=== PATIENT | female | born 1955 | race Caucasian/White ===

== ENCOUNTER 2016-04-05 10:26 | Emergency (ER) | payer OTHER ==
[2016-04-05 11:31] VITALS: BP 146/84
--- NOTE | 2016-04-05 12:34 | UC ---
Abdominal Pain Female HPI - HPI Summary HPI Summary: 60 year old female with complaints of 3 days of left upper quad abdominal pain radiating into her back. Pain was significant enough she had to leave work today. Pt is having some nausea, Denies vomiting. Denies urinary symptoms Hx of elevated liver functions, possible was medication induced but continue to be elevated after 1 year Denies fever or chills - History of Current Complaint Chief Complaint: UCAbdominalPain Stated Complaint: ABDOMINAL PAIN Time Seen by Provider: 04/05/16 12:11 Hx Obtained From: Patient Hx Last Menstrual Period: 6 yrs ago Onset/Duration: Gradual Onset, Lasting Days - 3, Still Present Timing: Constant Severity Initially: Mild Severity Currently: Severe Pain Scale Used: 0-10 Numeric - 7 Location: Discrete At: LUQ Radiates to: Back, Flank Aggravating Factor(s): Nothing Alleviating Factor(s): Nothing Associated Signs and Symptoms: Positive: Back Pain - left flank, Nausea. Negative: Fever, Cough, Chest Pain, Dizzy, Constipation, Blood in Stool, Urinary Symptoms, Decreased Appetite, Vaginal Bleeding, Vaginal Discharge, Vomiting, Diarrhea - Risk Factors Ectopic Risk Factor: Negative Ovarian Torsion Risk Factor: Negative Allergies/Adverse Reactions: Allergies Allergy/AdvReac Type Severity Reaction Status Date / Time Ibuprofen Allergy Severe Swelling Verified 06/14/15 10:06 Penicillins Allergy Severe Swelling Verified 06/14/15 10:06 Of Face,Lips,& Throat Cephalexin [From Keflex] Allergy Intermediate Rash Verified 06/14/15 10:06 Bacitracin cream Allergy Severe Blisters Uncoded 06/14/15 10:06 ENVIRONMENTAL/SEASONAL Allergy Mild RUNNY Uncoded 06/14/15 10:06 HAYFEVER NOSE, EYES SWELL, SNEEZING Home Medications: Home Medications Desvenlafaxine Succinate [Pristiq] 1 tab PO DAILY 04/05/16 [History Confirmed ] Multiple Vitamins W/ Minerals [Multivitamin Gummies Wome] 1 chw PO DAILY [History Confirmed 04/05/16] PMH/Surg Hx/FS Hx/Imm Hx Previously Healthy: Yes Endocrine History Of: Denies: Diabetes, Thyroid Disease Cardiovascular History Of: Reports: Hypertension Denies: Cardiac Disorders, Pacemaker/ICD, Myocardial Infarction Respiratory History Of: Reports: Asthma Denies: COPD GI/ History Of: Denies: Ulcer Psychological History Of: Reports: Anxiety - PANIC DISORDER, Depression - ON MEDS - Surgical History Surgical History: Yes Surgery Procedure, Year, and Place: Nose and lip surgery for basal cell carcinoma. LSP surgery 1999 at [facility] [place],. c-sections x2,. right wrist - ORIF ( PLATES & PINS) tubal, right knee. LIVER BIOPSY - Family History Known Family History: Positive: Hypertension Negative: Diabetes - Social History Occupation: Employed Full-time Lives: With Family Alcohol Use: None Substance Use Type: None Smoking Status (MU): Light Every Day Tobacco Smoker Type: Cigarettes Amount Used/How Often: < 1/2 ppd Length of Time of Smoking/Using Tobacco: 40 years Have You Smoked in the Last Year: Yes Cessation Counseling: Patient Advised to Stop - Immunization History Most Recent Influenza Vaccination: FALL 2014 Most Recent Tetanus Shot: 05/08/2014 Review of Systems Constitutional: Negative Skin: Negative Eyes: Negative ENT: Negative Respiratory: Negative Cardiovascular: Negative Gastrointestinal: Abdominal Pain Genitourinary: Negative Motor: Negative Neurovascular: Negative Musculoskeletal: Negative Neurological: Negative Psychological: Negative All Other Systems Reviewed And Are Negative: Yes Physical Exam Triage Information Reviewed: Yes Appearance: Ill-Appearing - mildly, Pain Distress - rubbing over her left upper quad and flank area while talking, Obese Vital Signs: Initial Vital Signs Temp 99.0 F 04/05/16 11:24 Pulse 65 04/05/16 11:24 Resp 18 04/05/16 11:24 BP 146/84 04/05/16 11:24 Pulse Ox 98 04/05/16 11:24 Vital Signs Reviewed: Yes Eyes: Positive: Conjunctiva Clear. Negative: Discharge ENT: Positive: Hearing grossly normal, Pharynx normal Neck: Positive: Supple, Nontender, No Lymphadenopathy Respiratory: Positive: Lungs clear, Normal breath sounds. Negative: Crackles, Wheezing Cardiovascular: Positive: RRR, No Murmur Abdomen Description: Positive: No Organomegaly, Soft, CVA Tenderness (L), Other : - left upper quad pain with palpation. Negative: CVA Tenderness (R), Distended, Guarding Musculoskeletal: Positive: Strength Intact, ROM Intact Neurological: Positive: Alert, Muscle Tone Normal Psychological: Positive: Age Appropriate Behavior - pleasant and cooperative Skin: Negative: rashes, breakdown Abd Pain Female Course/Dx - Course Course Of Treatment: Pt allergic to NSAIDS. She took her own pain med at 12: 50. UA - unable due to elevated bili. will transfer to [facility] - Differential Dx/Diagnosis Differential Diagnosis: Pancreatitis, Renal Colic, Urinary Tract Infection Provider Diagnoses: LUQ abdominal pain - Physician Notification/Consults Discussed Patient Care With: [facility] WEI Aaron Time Discussed With Above Provider: 13:10 Instructed by Provider To: Transfer - via private car Discharge - Discharge Plan Condition: Stable Disposition: TRANS HIGHER LVL OF CARE FAC
== END 2016-04-05 13:12 | disposition left against medical advice (07) ==
LOC: UCEAST 10:26
DX: R10.12 Left upper quadrant pain (principal); R11.0 Nausea; E80.7 Disorder of bilirubin metabolism, unspecified; Z88.6 Allergy status to analgesic agent; Z88.1 Allergy status to other antibiotic agents; Z88.0 Allergy status to penicillin; F17.210 Nicotine dependence, cigarettes, uncomplicated
CPT/HCPCS: 81002; 99212; G0463

== ENCOUNTER 2016-04-05 13:53 | Emergency (ER) | payer OTHER ==
[2016-04-05 14:27] VITALS: BP 149/74
== END 2016-04-05 16:51 | disposition left against medical advice (07) ==
LOC: ED 13:53
DX: R51 Headache (principal)

== ENCOUNTER 2016-04-06 07:53 | Emergency (ER) | payer OTHER ==
[2016-04-06] MEDS ORDERED: Ondansetron INJ* 2 MG/ML VIAL IV ONE (09:50)
[2016-04-06] MEDS ORDERED: NS 0.9% 1000 ML* 3,000 ML IV ONE (09:50)
[2016-04-06 10:12] LABS: Hematocrit 49 % (35-47); Hemoglobin 16.3 g/dl (12.0-16.0); Mean Corpuscular HGB Conc 33 g/dl (31-36); Mean Corpuscular Hemoglobin 29 pg (27-31); Mean Corpuscular Volume 88 fL (80-97); Mean Platelet Volume 9 um3 (7.4-10.4); Red Blood Count 5.55 10^6/ul (4.0-5.4); Red Cell Distribution Width 14 % (10.5-15)
[2016-04-06 10:15] LABS: Urine Bilirubin Negative (Negative); Urine Glucose Negative (Negative); Urine Nitrite Negative (Negative)
--- NOTE | 2016-04-06 10:24 | RAD ---
HISTORY: Cough, pain with inspiration COMPARISONS: May 15, 2014 VIEWS: 2: Frontal dual-energy and lateral views of the chest. FINDINGS: CARDIOMEDIASTINAL SILHOUETTE: The cardiomediastinal silhouette is normal. JULISSA: The julissa are normal. PLEURA: The costophrenic angles are sharp. No pleural abnormalities are noted. LUNG PARENCHYMA: The lungs are clear. ABDOMEN: The upper abdomen is clear. There is no subphrenic gas. BONES AND SOFT TISSUES: No bone or soft tissue abnormalities are noted. OTHER: None. IMPRESSION: NO ACTIVE CARDIOPULMONARY DISEASE.
[2016-04-06 10:26] LABS: Ammonia 47 mol/L (16-53)
[2016-04-06 10:28] LABS: Albumin 3.9 g/dL (3.2-5.2); B Type Natriuretic Peptide 32 pg/mL; BUN/Creatinine Ratio 14.5 (8-20); C Reactive Protein 13.35 mg/L (< 5.00); Calcium 9.3 mg/dL (8.6-10.3); EGFR African American 100.2 (>60); EGFR Non-African American 77.9 (>60); Magnesium 2.1 mg/dL (1.9-2.7); Potassium 4.2 mmol/L (3.5-5.0); Total Bilirubin 0.6 mg/dL (0.2-1.0); Total Protein 6.9 g/dL (6.4-8.9)
[2016-04-06] MEDS ORDERED: Iohexol 300* (CONTRAST) 10 ML SDV IV ONE (10:49)
[2016-04-06] MEDS ORDERED: HYDROmorphone INJ* 1 MG/ML CARPUJECT SYRINGE IV SLOW PU ONE (11:48)
--- NOTE | 2016-04-06 13:15 | RAD ---
INDICATION: Left upper quadrant pain COMPARISON: CT February 19, 2015 TECHNIQUE: Axial source images were obtained from the hemidiaphragms to the symphysis pubis following administration of oral and intravenous contrast. 121 mL Omnipaque 300 was utilized. Coronal and sagittal reconstructed images were acquired. Lung bases: The lung bases are clear. Liver: The liver is normal in size. There is mild hepatic steatosis. There is no ductal dilatation. Gallbladder: There are no calcified gallstones. There is no evidence of wall thickening or pericholecystic fluid. Spleen: There is mild splenomegaly, unchanged. There are no masses. Pancreas: There is no focal pancreatic mass or ductal dilatation. Adrenal glands: There is no evidence of adrenal mass. Kidneys: The kidneys are normal in size and position. There are prompt nephrograms and there is prompt excretion bilaterally. There are no renal parenchymal masses. There is no evidence of nephrolithiasis. Adenopathy: There is no evidence of adenopathy by size criteria. Fluid collections: There are no free or localized fluid collections. Vessels:There are atherosclerotic changes involving the aorta and iliac vessels. There is no focal aneurysm. The IVC appears normal. GI tract: There are no acute CT bowel findings. There is no obstruction. The stomach and small bowel appear normal. There are scant diverticula. There is no CT evidence of diverticulitis. The colon is otherwise unremarkable. The cecum, ileocecal valve, and terminal ileum appear normal. The appendix is visualized and appear normal. Pelvic organs: The uterus and adnexa appear normal Bladder: There are no bladder masses. Abdominal and pelvic soft tissues: The extraperitoneal abdominal and pelvic soft tissues appear normal.. Osseous structures: There are no acute osseous findings. Other: None IMPRESSION: HEPATIC STEATOSIS. MILD SPLENOMEGALY, UNCHANGED. NO ADDITIONAL SIGNIFICANT CT FINDINGS
[2016-04-06 13:51] VITALS: BP 131/63
--- NOTE | 2016-04-06 15:02 | ED ---
Jeffery Keating Benjamin, scribed for Ricky Solitario MD on 04/06/16 at 0953 . Abdominal Pain/Female - HPI Summary HPI Summary: 60yo female c/o sudden onset constant LUQ pain for 4 days. Pt also reports nausea, cough, and night sweats. Pt also lost 40lb of weight in the last 4 months involuntarily. Pt reports pain is and shelter fatigue since 1 year ago. Hx of liver biopsy, . Fhx of CAD and CA. over 40 years smoker. Pt was seen at [facility] yesterday and was told that bilirubin was found in her urine. - History of Current Complaint Chief Complaint: EDAbdPain Stated Complaint: LT UPPER QUAD PAIN Time Seen by Provider: 04/06/16 09:09 Hx Obtained From: Patient Hx Last Menstrual Period: 6 yrs ago Onset/Duration: Gradual Onset, Lasting Days, Still Present Timing: Constant Severity Initially: Moderate Severity Currently: Moderate Pain Intensity: 7 Pain Scale Used: 0-10 Numeric Location: Discrete At: LUQ Radiates: No Aggravating Factor(s): Nothing Alleviating Factor(s): Nothing Associated Signs and Symptoms: Positive: Cough, Nausea Allergies/Adverse Reactions: Allergies Allergy/AdvReac Type Severity Reaction Status Date / Time Ibuprofen Allergy Severe Swelling Verified 04/06/16 08:03 Penicillins Allergy Severe Swelling Verified 04/06/16 08:03 Of Face,Lips,& Throat Cephalexin [From Keflex] Allergy Intermediate Rash Verified 04/06/16 08:03 Bacitracin cream Allergy Severe Blisters Uncoded 04/06/16 08:03 ENVIRONMENTAL/SEASONAL Allergy Mild RUNNY Uncoded 04/06/16 08:03 HAYFEVER NOSE, EYES SWELL, SNEEZING PMH/Surg Hx/FS Hx/Imm Hx Endocrine/Hematology History: Denies: Hx Diabetes, Hx Thyroid Disease Cardiovascular History: Reports: Hx Angina, Hx Hypertension Denies: Hx Coronary Artery Disease, Hx Hypercholesterolemia, Hx Myocardial Infarction, Hx Pacemaker/ICD, Hx Valvular Heart Disease Respiratory History: Reports: Hx Asthma Denies: Hx Chronic Obstructive Pulmonary Disease (COPD) GI History: Denies: Hx Ulcer History: Reports: Other Problems/Disorders - STRESS INCONTINENCE Musculoskeletal History: Reports: Hx Arthritis - BILATERAL KNEES, BACK, Other Musculoskeletal History - BONE SPUR IN BACK, SEVERE BACK PAIN Sensory History: Reports: Hx Contacts or Glasses - GLASSES Denies: Hx Hearing Aid Opthamlomology History: Reports: Hx Contacts or Glasses - GLASSES Neurological History: Reports: Other Neuro Impairments/Disorders - PTDS, STRESS , ANXIETY Psychiatric History: Reports: Hx Anxiety - PANIC DISORDER, Hx Depression - ON MEDS, Hx Panic Disorder - does fine with mri - Cancer History Cancer Type, Location and Year: basal cell cancer removed from face, Mohs surgery - Surgical History Surgery Procedure, Year, and Place: Nose and lip surgery for basal cell carcinoma. [place] [facility] [place]2,. right wrist - ORIF ( PLATES & PINS) tubal, right knee. LIVER BIOPSY Hx Anesthesia Reactions: No Infectious Disease History: No Infectious Disease History: Denies: Hx Clostridium Difficile, Hx Hepatitis, Hx Human Immunodeficiency Virus (HIV), Hx of Known/Suspected MRSA, Hx Shingles, Hx Tuberculosis, Hx Known/ Suspected VRE, Hx Known/Suspected VRSA, History Other Infectious Disease, Traveled Outside the [place] in Last 30 Days - Family History Known Family History: Positive: Cardiac Disease, Hypertension, Other - CA Negative: Diabetes - Social History Occupation: Employed Full-time Lives: With Family Alcohol Use: None Substance Use Type: Reports: None Smoking Status (MU): Light Every Day Tobacco Smoker Type: Cigarettes Amount Used/How Often: < 1/2 ppd Length of Time of Smoking/Using Tobacco: 40 years Have You Smoked in the Last Year: Yes Review of Systems Positive: Fatigue Eyes: Negative ENT: Negative Cardiovascular: Negative Positive: Cough Positive: Abdominal Pain - LUQ, Nausea Genitourinary: Negative Musculoskeletal: Negative Skin: Negative Neurological: Negative Psychological: Normal All Other Systems Reviewed And Are Negative: Yes Physical Exam - Summary Physical Exam Summary: The patient is well-nourished in no acute distress and in no acute pain. The skin is warm and dry and skin color reflects adequate perfusion. HEENT: The head is normocephalic and atraumatic. The pupils are equal and reactive. The conjunctivae are clear and without drainage. Nares are patent and without drainage. Mouth reveals dry mucous membranes and the throat is without erythema and exudate. The external ears are intact. The ear canals are patent and without drainage. The tympanic membranes are intact. Neck is supple with full range of motion and non-tender. There are no carotid bruits. There is no neck vein distension. Respiratory: Chest is non-tender. Lungs are clear to auscultation and breath sounds are symmetrical and equal. Cardiovascular: Hear is regular rate and rhythm. There is no murmur or rub auscultated. There is no peripheral edema and pulses are symmetrical and equal. Abdomen: The abdomen is soft and non-tender. There are normal bowel sounds heard in all four quadrants and there is no organomegaly palpated. Musculoskeletal: There is left CVA Tenderness. Extremities are non-tender with full range of motion. There is good capillary refill. There is no peripheral edema or calf tenderness elicited. Neurological: Patient is alert and oriented to person, place and time. The patient has symmetrical motor strength in all four extremities. Cranial nerves are grossly intact. Deep tendon reflexes are symmetrical and equal in all four extremities. Psychiatric: The patient has an appropriate affect and does not exhibit any anxiety or depression. Triage Information Reviewed: Yes Vital Signs On Initial Exam: Initial Vitals Temp Pulse Resp BP Pulse Ox 98.4 F 81 16 156/80 97 04/06/16 07:58 04/06/16 07:58 04/06/16 07:58 04/06/16 07:58 04/06/16 07:58 Vital Signs Reviewed: Yes - [place] Coma Scale Coma Scale Total: 15 Diagnostics - Vital Signs Vital Signs Temp Pulse Resp BP Pulse Ox 04/06/16 09:17 19 170/91 04/06/16 09:00 16 04/06/16 08:51 75 13 96 04/06/16 08:50 152/90 04/06/16 07:58 98.4 F 81 16 156/80 97 - Laboratory Lab Results: Lab Results 04/06/16 04/06/16 04/06/16 Range/Units 09:15 09:15 09:15 WBC 6.0 (3.5-10.8) 10^3/ul RBC 5.55 H (4.0-5.4) 10^6/ul Hgb 16.3 H (12.0-16.0) g/dl Hct 49 H (35-47) % MCV 88 (80-97) fL MCH 29 (27-31) pg MCHC 33 (31-36) g/dl RDW 14 (10.5-15) % Plt Count 191 (150-450) 10^3/ul MPV 9 (7.4-10.4) um3 Neut % (Auto) 51.4 (38-83) % Lymph % (Auto) 39.6 (25-47) % Hood % (Auto) 8.0 (1-9) % Eos % (Auto) 0.6 (0-6) % Baso % (Auto) 0.4 (0-2) % Absolute Neuts (auto) 3.1 (1.5-7.7) 10^3/ul Absolute Lymphs (auto) 2.4 (1.0-4.8) 10^3/ul Absolute Monos (auto) 0.5 (0-0.8) 10^3/ul Absolute Eos (auto) 0 (0-0.6) 10^3/ul Absolute Basos (auto) 0 (0-0.2) 10^3/ul Absolute Nucleated RBC 0.01 10^3/ul Nucleated RBC % 0.2 INR (Anticoag Therapy) 0.92 (0.89-1.11) Sodium 136 (133-145) mmol/L Potassium 4.2 (3.5-5.0) mmol/L Chloride 106 (101-111) mmol/L Carbon Dioxide 25 (22-32) mmol/L Anion Gap 5 (2-11) mmol/L BUN 11 (6-24) mg/dL Creatinine 0.76 (0.51-0.95) mg/dL Est GFR ( Amer) 100.2 (>60) Est GFR (Non-Af Amer) 77.9 (>60) BUN/Creatinine Ratio 14.5 (8-20) Glucose 98 (70-100) mg/dL Lactic Acid (0.5-2.0) mmol/L Calcium 9.3 (8.6-10.3) mg/dL Magnesium 2.1 (1.9-2.7) mg/dL Total Bilirubin 0.60 (0.2-1.0) mg/dL GGT 212 H (9-64.0) U/L AST 30 (13-39) U/L ALT 25 (7-52) U/L Alkaline Phosphatase 162 H (34-104) U/L Ammonia (16-53) mol/L Lactate Dehydrogenase 167 (140-271) U/L Troponin I 0.00 (<0.04) ng/mL C-Reactive Protein 13.35 H (< 5.00) mg/L B-Natriuretic Peptide ( - 100) pg/mL Total Protein 6.9 (6.4-8.9) g/dL Albumin 3.9 (3.2-5.2) g/dL Globulin 3.0 (2-4) g/dL Albumin/Globulin Ratio 1.3 (1-3) Amylase 45 (29-103) U/L Lipase 10 L (11.0-82.0) U/L Urine Color Urine Appearance Urine pH (5-9) Ur Specific [place] (1.010-1.030) Urine Protein (Negative) Urine Ketones (Negative) Urine Blood (Negative) Urine Nitrate (Negative) Urine Bilirubin (Negative) Urine Urobilinogen (Negative) Ur Leukocyte Esterase (Negative) Urine Glucose (Negative) 04/06/16 04/06/16 04/06/16 Range/Units 09:15 09:15 09:15 WBC (3.5-10.8) 10^3/ul RBC (4.0-5.4) 10^6/ul Hgb (12.0-16.0) g/dl Hct (35-47) % MCV (80-97) fL MCH (27-31) pg MCHC (31-36) g/dl RDW (10.5-15) % Plt Count (150-450) 10^3/ul MPV (7.4-10.4) um3 Neut % (Auto) (38-83) % Lymph % (Auto) (25-47) % Hood % (Auto) (1-9) % Eos % (Auto) (0-6) % Baso % (Auto) (0-2) % Absolute Neuts (auto) (1.5-7.7) 10^3/ul Absolute Lymphs (auto) (1.0-4.8) 10^3/ul Absolute Monos (auto) (0-0.8) 10^3/ul Absolute Eos (auto) (0-0.6) 10^3/ul Absolute Basos (auto) (0-0.2) 10^3/ul Absolute Nucleated RBC 10^3/ul Nucleated RBC % INR (Anticoag Therapy) (0.89-1.11) Sodium (133-145) mmol/L Potassium (3.5-5.0) mmol/L Chloride (101-111) mmol/L Carbon Dioxide (22-32) mmol/L Anion Gap (2-11) mmol/L BUN (6-24) mg/dL Creatinine (0.51-0.95) mg/dL Est GFR ( Amer) (>60) Est GFR (Non-Af Amer) (>60) BUN/Creatinine Ratio (8-20) Glucose (70-100) mg/dL Lactic Acid 0.8 (0.5-2.0) mmol/L Calcium (8.6-10.3) mg/dL Magnesium (1.9-2.7) mg/dL Total Bilirubin (0.2-1.0) mg/dL GGT (9-64.0) U/L AST (13-39) U/L ALT (7-52) U/L Alkaline Phosphatase (34-104) U/L Ammonia 47 (16-53) mol/L Lactate Dehydrogenase (140-271) U/L Troponin I (<0.04) ng/mL C-Reactive Protein (< 5.00) mg/L B-Natriuretic Peptide 32 ( - 100) pg/mL Total Protein (6.4-8.9) g/dL Albumin (3.2-5.2) g/dL Globulin (2-4) g/dL Albumin/Globulin Ratio (1-3) Amylase (29-103) U/L Lipase (11.0-82.0) U/L Urine Color Yellow Urine Appearance Clear Urine pH 5.0 (5-9) Ur Specific [place] 1.019 (1.010-1.030) Urine Protein Negative (Negative) Urine Ketones Trace H (Negative) Urine Blood Negative (Negative) Urine Nitrate Negative (Negative) Urine Bilirubin Negative (Negative) Urine Urobilinogen Negative (Negative) Ur Leukocyte Esterase Negative (Negative) Urine Glucose Negative (Negative) Result Diagrams: 04/06/16 09:15 04/06/16 09:15 Lab Statement: Any lab studies that have been ordered have been reviewed, and results considered in the medical decision making process. - Radiology CXR Xray Interpretation: No Acute Changes Radiology Interpretation Completed By: Radiologist - CT CT Abd/Pelv CT Interpretation: Positive (See Comments) - IMPRESSION: HEPATIC STEATOSIS. MILD SPLENOMEGALY, UNCHANGED. NO ADDITIONAL SIGNIFICANT CT FINDINGS CT Interpretation Completed By: Radiologist Re-Evaluation - Re-Evaluation First Eval Re-Evaluation Time: 13:29 - disccused lab and imaging results with the pt. Change: Improved Abdominal Pain Fem Course/Dx - Diagnoses Differential Diagnosis: Positive: Bowel Obstruction, Constipation, Diverticulitis, Gall Bladder Disease, Hepatitis, Renal Colic, Urinary Tract Infection, Other - pancreatitis, spleenomegaly, colon cancer Provider Diagnoses: Abdominal pain, Dehydration, Splenomegaly - Provider Notifications Discussed Care Of Patient With: Nina from Social work @1035. Case management will call back for possible admission. Discharge - Discharge Plan Condition: Stable Disposition: HOME Patient Education Materials: Dehydration (ED), Abdominal Pain (ED) Forms: *Work Release Referrals: Collin Nicole MD [Primary Care Provider] - 2 Days The documentation as recorded by the Jeffery paz Benjamin accurately reflects the service I personally performed and the decisions made by , Ricky Solitario MD.
== END 2016-04-06 13:51 | disposition home or self-care (01) ==
LOC: ED 07:53
DX: R10.12 Left upper quadrant pain (principal); F17.210 Nicotine dependence, cigarettes, uncomplicated; R05 Cough; R11.0 Nausea; E86.0 Dehydration; R16.1 Splenomegaly, not elsewhere classified
CPT/HCPCS: 36415; 71020; 74177; 80053; 81003; 82140; 82150; 82977; 83605; 83615; 83690; 83735; 83880; 84484; 85025; 85610; 86140; 93005; 96361; 96374; 96375; 99284; J1170; J2405; Q9967

== ENCOUNTER 2016-05-21 12:21 | Emergency (ER) | payer OTHER ==
[2016-05-21 12:47] VITALS: BP 138/66
[2016-05-21] MEDS ORDERED: Aspirin Low Dose CHEW TAB* 81 MG PO ONE (13:48)
--- NOTE | 2016-05-21 14:29 | UC ---
Yovani Keating Claudia, scribed for Sarah Henry DO on 05/21/16 at 1345 . Upper Extremity HPI - HPI Summary HPI Summary: 60 year old female presents to the [facility] with left shoulder pain extending down the left arm. She notes the pain is also in her left upper chest. Pt notes pain to palpate the arm as well as aggravated pain with movement. Pt notes that Sunday pt was sent home due to nausea and 1 bout of emesis. Later that night pt developed Sx. Pt also notes that for the past few weeks she has had trouble swallowing. Pt notes that the arm is now swollen especially her hand and fingers. Pt admits to some skin diaphoresis in the past few days but denies SOB , abd pain, fever, chills. FHx: Cardiac Disease SHx: heavy everyday smoker PMHx: HTN - History of Current Complaint Chief Complaint: UCUpperExtremity Stated Complaint: LT ARM PAIN,SWELLING,SHOULDER PAIN Hx Obtained From: Patient Hx Last Menstrual Period: 6 yrs ago Onset/Duration: Sudden Onset, Lasting Days - since Sunday pm, Still Present Severity Initially: Severe Severity Currently: Severe Pain Intensity: 10 Location Of Pain: Is Discrete @ - right shoulder, arm, elbow, wrist, hand Aggravating Factor(s): Movement Alleviating Factor(s): Nothing Associated Signs And Symptoms: Positive: Swelling. Negative: Redness, Bruising , Fever, Weakness, Numbness/Tingling - Risk Factors DVT Risk Factors: Smoking - Allergies/Home Medications Allergies/Adverse Reactions: Allergies Allergy/AdvReac Type Severity Reaction Status Date / Time Ibuprofen Allergy Severe Swelling Verified 05/21/16 12:39 Penicillins Allergy Severe Swelling Verified 05/21/16 12:39 Of Face,Lips,& Throat Cephalexin [From Keflex] Allergy Intermediate Rash Verified 05/21/16 12:39 Bacitracin cream Allergy Severe Blisters Uncoded 05/21/16 12:39 ENVIRONMENTAL/SEASONAL Allergy Mild RUNNY Uncoded 05/21/16 12:39 HAYFEVER NOSE, EYES SWELL, SNEEZING PMH/Surg Hx/FS Hx/Imm Hx Previously Healthy: Yes Endocrine History Of: Denies: Diabetes, Thyroid Disease Cardiovascular History Of: Reports: Hypertension Denies: Cardiac Disorders, Pacemaker/ICD, Myocardial Infarction Respiratory History Of: Reports: Asthma Denies: COPD GI/ History Of: Denies: Ulcer, Renal Disease Psychological History Of: Reports: Anxiety - PANIC DISORDER, Depression - ON MEDS - Surgical History Surgical History: Yes Surgery Procedure, Year, and Place: Nose and lip surgery for basal cell carcinoma. [place] [facility] [place]2,. right wrist - ORIF ( PLATES & PINS) tubal, right knee. LIVER BIOPSY - Family History Known Family History: Positive: Cardiac Disease, Hypertension, Other - CA Negative: Diabetes - Social History Occupation: Employed Full-time Lives: With Family Alcohol Use: None Substance Use Type: None Smoking Status (MU): Light Every Day Tobacco Smoker Type: Cigarettes Amount Used/How Often: < 1/2 ppd Length of Time of Smoking/Using Tobacco: 40 years Have You Smoked in the Last Year: Yes Cessation Counseling: Patient Advised to Stop - Immunization History Most Recent Influenza Vaccination: JAN 2016 Most Recent Tetanus Shot: 05/08/2014 Review of Systems Constitutional: Negative - NO FEVER, CHILLS Skin: Negative Eyes: Negative ENT: Negative Respiratory: Negative Cardiovascular: Negative Gastrointestinal: Negative Genitourinary: Negative Motor: Decreased ROM, Other - LEFT ARM PAIN Neurovascular: Negative Musculoskeletal: Negative Neurological: Negative Psychological: Negative All Other Systems Reviewed And Are Negative: Yes Physical Exam Triage Information Reviewed: Yes Appearance: Well-Appearing, Pain Distress - mild, Obese Vital Signs: Initial Vital Signs Temp 99.3 F 05/21/16 12:39 Pulse 75 05/21/16 12:39 Resp 16 05/21/16 12:39 BP 138/66 05/21/16 12:39 Pulse Ox 97 05/21/16 12:39 Vital Signs Reviewed: Yes Eye Exam: Normal Eyes: Positive: Conjunctiva Clear. Negative: Discharge ENT Exam: Normal ENT: Positive: Hearing grossly normal. Negative: Muffled/hoarse voice Neck exam: Normal Neck: Positive: Supple Respiratory Exam: Normal Respiratory: Positive: Normal breath sounds, No respiratory distress, No accessory muscle use Cardiovascular Exam: Normal Cardiovascular: Positive: RRR, No Murmur Abdominal Exam: Normal Abdomen Description: Positive: Soft Musculoskeletal Exam: Other - decreased ROM of the left arm due to pain. Mild swelling of the fingers, tender to touch from the neck throughout the arm. Neurological Exam: Normal Neurological: Positive: Alert, Muscle Tone Normal Psychological Exam: Normal Psychological: Positive: Age Appropriate Behavior Skin Exam: Normal - DR, WARM, NML COLOR Diagnostics - EKG Cardiac Rate: NL - 72 beats/min ST Segment: Normal - no ST changes, Q waves in -VIII Upper Extremity Course/Dx - Course Course Of Treatment: Pt has been given a baby aspirin and an IV has been placed for transfer to [facility] [place] via EMS. - Differential Dx/Diagnosis Differential Diagnosis/HQI/PQRI: Other - mi, dvt, adhesive capsulitis, sprain, cervical radiculopathy Provider Diagnoses: atypical cp- r/o acs, pain in limb - r/o dvt Discharge - Discharge Plan Condition: Stable Disposition: [facility] Discharge Disposition Comment: TRANSFERRED TO [facility] VIA EMS Referrals: Collin Nicole MD [Primary Care Provider] - The documentation as recorded by the Yovani paz Claudia accurately reflects the service I personally performed and the decisions made by , Sarah Henry DO.
== END 2016-05-21 14:15 | disposition short-term general hospital (02) ==
LOC: UCEAST 12:21
DX: R07.89 Other chest pain (principal); M79.602 Pain in left arm; Z88.1 Allergy status to other antibiotic agents; I10 Essential (primary) hypertension; J45.909 Unspecified asthma, uncomplicated; F17.210 Nicotine dependence, cigarettes, uncomplicated
CPT/HCPCS: 93005; 99213; A9270-GY; G0463

== ENCOUNTER 2016-05-21 14:29 | Emergency (ER) | payer OTHER ==
[2016-05-21] MEDS ORDERED: NS 0.9% 1000 ML* 1,000 ML IV ONE (14:48)
[2016-05-21] MEDS ORDERED: Morphine INJ* 4 MG/ML 1 ML CARPUJECT IV ONE ×2 (14:48→16:35)
[2016-05-21] MEDS ORDERED: Ondansetron INJ* 2 MG/ML VIAL IV ONE (14:48)
[2016-05-21 14:58] LABS: Hematocrit 48 % (35-47); Hemoglobin 16.3 g/dl (12.0-16.0); Mean Corpuscular HGB Conc 34 g/dl (31-36); Mean Corpuscular Hemoglobin 30 pg (27-31); Mean Corpuscular Volume 88 fL (80-97); Mean Platelet Volume 9 um3 (7.4-10.4); Red Cell Distribution Width 14 % (10.5-15); White Blood Count 9.3 10^3/ul (3.5-10.8)
[2016-05-21 15:10] LABS: ALT 24 U/L (7-52); AST 25 U/L (13-39); Albumin 3.9 g/dL (3.2-5.2); Alkaline Phosphatase 157 U/L (34-104); Anion Gap 9 mmol/L (2-11); BUN/Creatinine Ratio 18.3 (8-20); Blood Urea Nitrogen 13 mg/dL (6-24); C Reactive Protein 48.18 mg/L (< 5.00); CO2 Carbon Dioxide 25 mmol/L (22-32); Calcium 9.4 mg/dL (8.6-10.3); Chloride 102 mmol/L (101-111); Creatine Kinase 26 U/L (10-223); EGFR African American 108.4 (>60); EGFR Non-African American 84.3 (>60); Globulin 3.3 g/dL (2-4); Glucose 90 mg/dL (70-100); Lipase < 10 U/L (11.0-82.0); Sodium 136 mmol/L (133-145); Total Protein 7.2 g/dL (6.4-8.9)
[2016-05-21 15:15] LABS: Troponin I 0.04 ng/mL (<0.04)
[2016-05-21 15:20] LABS: TSH (Thyroid Stimulating Horm) 1.19 mcIU/mL (0.34-5.60)
--- NOTE | 2016-05-21 15:32 | RAD ---
INDICATION: Left shoulder pain. Chest pain. COMPARISON: April 06, 2016 TECHNIQUE: An AP portable seated view obtained at 1513 hours is submitted. FINDINGS: Bones/Soft Tissues: There are no acute bony findings. Cardiomediastinal: The cardiomediastinal silhouette is normal. Lungs: There are no infiltrates. Pleura: There are no pleural effusions. Other: None IMPRESSION: NO ACTIVE DISEASE.
--- NOTE | 2016-05-21 15:34 | RAD ---
INDICATION: Left shoulder pain COMPARISON: None TECHNIQUE: Routine frontal and Y views were obtained. FINDINGS: There is minor AC joint osteoarthritis and there is minor spurring of inferior glenoid. There is no evidence of dislocation or subluxation. The soft tissues are normal. IMPRESSION: MINOR OSTEOARTHRITIS
[2016-05-21 17:11] LABS: Urine Bilirubin Negative (Negative); Urine Glucose Negative (Negative); Urine Nitrite Negative (Negative)
--- NOTE | 2016-05-21 18:02 | ED ---
Elicia Keating Michael, scribed for Sam Dangelo MD on 05/21/16 at 1458 . Upper Extremity Pain - HPI Summary HPI Summary: 60 y/o female was [facility] from [facility] presenting with constant LUE pain and swelling that started one day ago. The pt reports that the LUE pain is radiating to her neck and down her LUE. She rates the pain a 10 out of 10 on pain severity scale. The pain is aggravated upon movement of the shoulder joint. Currently, her left hand is swollen and mildly numb. She also c/o n/v and dysphasia that started 2 days ago. The pt has not vomited since her one episode 2 days ago. She denies weakness, fever, SOB, and CP. - History of Current Complaint Chief Complaint: EDExtremityUpper Stated Complaint: LT ARM SWELLING Time Seen by Provider: 05/21/16 14:38 Hx Obtained From: Patient, EMS, Medical Records Hx Last Menstrual Period: 6 yrs ago Mechanism Of Injury: Unknown Onset/Duration: Started Days Ago, Still Present Timing: Constant Severity Initially: Moderate Severity Currently: Moderate Pain Location: Shoulder - left, Arm - left Aggravating Factor(s): Movement Alleviating Factor(s): Nothing Associated Signs & Symptoms: Positive: Swelling - LUE and pain, Numbness/ Tingling, Neck Pain. Negative: Fever, Weakness, Chest Pain, SOB, Nausea, Vomiting - Allergies/Home Medications Allergies/Adverse Reactions: Allergies Allergy/AdvReac Type Severity Reaction Status Date / Time Ibuprofen Allergy Severe Swelling Verified 05/21/16 14:35 Penicillins Allergy Severe Swelling Verified 05/21/16 14:35 Of Face,Lips,& Throat Cephalexin [From Keflex] Allergy Intermediate Rash Verified 05/21/16 14:35 Bacitracin cream Allergy Severe Blisters Uncoded 05/21/16 14:35 ENVIRONMENTAL/SEASONAL Allergy Mild RUNNY Uncoded 05/21/16 14:35 HAYFEVER NOSE, EYES SWELL, SNEEZING PMH/Surg Hx/FS Hx/Imm Hx Endocrine/Hematology History: Denies: Hx Diabetes, Hx Thyroid Disease Cardiovascular History: Reports: Hx Angina, Hx Hypertension Denies: Hx Coronary Artery Disease, Hx Hypercholesterolemia, Hx Myocardial Infarction, Hx Pacemaker/ICD, Hx Valvular Heart Disease Respiratory History: Reports: Hx Asthma Denies: Hx Chronic Obstructive Pulmonary Disease (COPD) GI History: Denies: Hx Ulcer History: Reports: Other Problems/Disorders - STRESS INCONTINENCE Denies: Hx Renal Disease Musculoskeletal History: Reports: Hx Arthritis - BILATERAL KNEES, BACK, Other Musculoskeletal History - BONE SPUR IN BACK, SEVERE BACK PAIN Sensory History: Reports: Hx Contacts or Glasses - GLASSES Denies: Hx Hearing Aid Opthamlomology History: Reports: Hx Contacts or Glasses - GLASSES Neurological History: Reports: Other Neuro Impairments/Disorders - PTDS, STRESS , ANXIETY Psychiatric History: Reports: Hx Anxiety - PANIC DISORDER, Hx Depression - ON MEDS, Hx Panic Disorder - does fine with mri - Cancer History Cancer Type, Location and Year: basal cell cancer removed from face, Mohs surgery - Surgical History Surgery Procedure, Year, and Place: Nose and lip surgery for basal cell carcinoma. [place] surgery [place] at [facility] [place] c-sections x2,. right wrist - ORIF ( PLATES & PINS) tubal, right knee. LIVER BIOPSY Hx Anesthesia Reactions: No Infectious Disease History: Yes Infectious Disease History: Reports: Hx Hepatitis - CHRONIC HEPATITIS Denies: Hx Clostridium Difficile, Hx Human Immunodeficiency Virus (HIV), Hx of Known/Suspected MRSA, Hx Shingles, Hx Tuberculosis, Hx Known/Suspected VRE, Hx Known/Suspected VRSA, History Other Infectious Disease, Traveled Outside the [place] in Last 30 Days - Family History Known Family History: Positive: Cardiac Disease, Hypertension, Other - CA Negative: Diabetes - Social History Occupation: Employed Full-time Lives: With Family Alcohol Use: None Substance Use Type: Reports: None Smoking Status (MU): Light Every Day Tobacco Smoker Type: Cigarettes Amount Used/How Often: < 1/2 ppd Length of Time of Smoking/Using Tobacco: 40 years Have You Smoked in the Last Year: Yes Review of Systems Negative: Fever Positive: Other - dysphagia Negative: Chest Pain Negative: Shortness Of Breath Negative: Vomiting, Nausea Positive: Other - LUE pain and swelling Positive: Numbness - left hand. Negative: Weakness All Other Systems Reviewed And Are Negative: Yes Physical Exam Triage Information Reviewed: Yes Vital Signs On Initial Exam: Initial Vitals Temp Pulse Resp BP Pulse Ox 99.8 F 65 18 127/62 95 05/21/16 14:34 05/21/16 14:34 05/21/16 14:34 05/21/16 14:34 05/21/16 14:34 Vital Signs Reviewed: Yes Appearance: Positive: Well-Appearing, Pain Distress - mild Skin: Positive: Warm, Skin Color Reflects Adequate Perfusion, Dry Head/Face: Positive: Normal Head/Face Inspection Eyes: Positive: EOMI, ADEN ENT: Positive: Normal ENT inspection Neck: Positive: Supple, Nontender Respiratory/Lung Sounds: Positive: Clear to Auscultation, Breath Sounds Present Cardiovascular: Positive: RRR, Pulses are Symmetrical in both Upper and Lower Extremities Abdomen Description: Positive: Nontender, Soft Bowel Sounds: Positive: Present Musculoskeletal: Positive: Other - tenderness at should joint and pain with ROM. No pain with ROM at wrist and elbow joints. Neurological: Positive: Normal, Sensory/Motor Intact, Alert, Oriented to Person Place, Time Psychiatric: Positive: Affect/Mood Appropriate Diagnostics - Vital Signs Vital Signs Temp Pulse Resp BP Pulse Ox 05/21/16 14:34 99.8 F 65 18 127/62 95 - Laboratory Lab Results: Lab Results 05/21/16 05/21/16 05/21/16 Range/Units 14:01 14:01 14:01 WBC 9.3 (3.5-10.8) 10^3/ul RBC 5.50 H (4.0-5.4) 10^6/ul Hgb 16.3 H (12.0-16.0) g/dl Hct 48 H (35-47) % MCV 88 (80-97) fL MCH 30 (27-31) pg MCHC 34 (31-36) g/dl RDW 14 (10.5-15) % Plt Count 192 (150-450) 10^3/ul MPV 9 (7.4-10.4) um3 Neut % (Auto) 68.4 (38-83) % Lymph % (Auto) 22.0 L (25-47) % Andrew % (Auto) 8.2 (1-9) % Eos % (Auto) 0.7 (0-6) % Baso % (Auto) 0.7 (0-2) % Absolute Neuts (auto) 6.3 (1.5-7.7) 10^3/ul Absolute Lymphs (auto) 2.0 (1.0-4.8) 10^3/ul Absolute Monos (auto) 0.8 (0-0.8) 10^3/ul Absolute Eos (auto) 0.1 (0-0.6) 10^3/ul Absolute Basos (auto) 0.1 (0-0.2) 10^3/ul Absolute Nucleated RBC 0.01 10^3/ul Nucleated RBC % 0.1 INR (Anticoag Therapy) 0.91 (0.89-1.11) APTT 33.2 (26.0-36.3) seconds D-Dimer, Quantitative < 200 (Less Than 230) ng/mL Sodium 136 (133-145) mmol/L Potassium 4.0 (3.5-5.0) mmol/L Chloride 102 (101-111) mmol/L Carbon Dioxide 25 (22-32) mmol/L Anion Gap 9 (2-11) mmol/L BUN 13 (6-24) mg/dL Creatinine 0.71 (0.51-0.95) mg/dL Est GFR ( Amer) 108.4 (>60) Est GFR (Non-Af Amer) 84.3 (>60) BUN/Creatinine Ratio 18.3 (8-20) Glucose 90 (70-100) mg/dL Lactic Acid (0.5-2.0) mmol/L Calcium 9.4 (8.6-10.3) mg/dL Magnesium 2.0 (1.9-2.7) mg/dL Total Bilirubin 0.70 (0.2-1.0) mg/dL AST 25 (13-39) U/L ALT 24 (7-52) U/L Alkaline Phosphatase 157 H (34-104) U/L Total Creatine Kinase 26 (10-223) U/L CK-MB (CK-2) 2.2 (0.6-6.3) ng/mL Troponin I 0.04 H* (<0.04) ng/mL C-Reactive Protein 48.18 H (< 5.00) mg/L Total Protein 7.2 (6.4-8.9) g/dL Albumin 3.9 (3.2-5.2) g/dL Globulin 3.3 (2-4) g/dL Albumin/Globulin Ratio 1.2 (1-3) Lipase < 10 L (11.0-82.0) U/L TSH 1.19 (0.34-5.60) mcIU/mL Urine Color Urine Appearance Urine pH (5-9) Ur Specific [place] (1.010-1.030) Urine Protein (Negative) Urine Ketones (Negative) Urine Blood (Negative) Urine Nitrate (Negative) Urine Bilirubin (Negative) Urine Urobilinogen (Negative) Ur Leukocyte Esterase (Negative) Urine Glucose (Negative) 05/21/16 05/21/16 05/21/16 Range/Units 14:01 16:58 17:06 WBC (3.5-10.8) 10^3/ul RBC (4.0-5.4) 10^6/ul Hgb (12.0-16.0) g/dl Hct (35-47) % MCV (80-97) fL MCH (27-31) pg MCHC (31-36) g/dl RDW (10.5-15) % Plt Count (150-450) 10^3/ul MPV (7.4-10.4) um3 Neut % (Auto) (38-83) % Lymph % (Auto) (25-47) % Andrew % (Auto) (1-9) % Eos % (Auto) (0-6) % Baso % (Auto) (0-2) % Absolute Neuts (auto) (1.5-7.7) 10^3/ul Absolute Lymphs (auto) (1.0-4.8) 10^3/ul Absolute Monos (auto) (0-0.8) 10^3/ul Absolute Eos (auto) (0-0.6) 10^3/ul Absolute Basos (auto) (0-0.2) 10^3/ul Absolute Nucleated RBC 10^3/ul Nucleated RBC % INR (Anticoag Therapy) (0.89-1.11) APTT (26.0-36.3) seconds D-Dimer, Quantitative (Less Than 230) ng/mL Sodium (133-145) mmol/L Potassium (3.5-5.0) mmol/L Chloride (101-111) mmol/L Carbon Dioxide (22-32) mmol/L Anion Gap (2-11) mmol/L BUN (6-24) mg/dL Creatinine (0.51-0.95) mg/dL Est GFR ( Amer) (>60) Est GFR (Non-Af Amer) (>60) BUN/Creatinine Ratio (8-20) Glucose (70-100) mg/dL Lactic Acid 0.7 (0.5-2.0) mmol/L Calcium (8.6-10.3) mg/dL Magnesium (1.9-2.7) mg/dL Total Bilirubin (0.2-1.0) mg/dL AST (13-39) U/L ALT (7-52) U/L Alkaline Phosphatase (34-104) U/L Total Creatine Kinase (10-223) U/L CK-MB (CK-2) (0.6-6.3) ng/mL Troponin I 0.00 (<0.04) ng/mL C-Reactive Protein (< 5.00) mg/L Total Protein (6.4-8.9) g/dL Albumin (3.2-5.2) g/dL Globulin (2-4) g/dL Albumin/Globulin Ratio (1-3) Lipase (11.0-82.0) U/L TSH (0.34-5.60) mcIU/mL Urine Color Yellow Urine Appearance Clear Urine pH 5.0 (5-9) Ur Specific [place] 1.021 (1.010-1.030) Urine Protein Negative (Negative) Urine Ketones Negative (Negative) Urine Blood Negative (Negative) Urine Nitrate Negative (Negative) Urine Bilirubin Negative (Negative) Urine Urobilinogen Negative (Negative) Ur Leukocyte Esterase Negative (Negative) Urine Glucose Negative (Negative) Result Diagrams: 05/21/16 14:01 05/21/16 14:01 Lab Statement: Any lab studies that have been ordered have been reviewed, and results considered in the medical decision making process. - Radiology L Shoulder XR Xray Interpretation: Positive (See Comments) Radiology Interpretation Completed By: Radiologist CXR Xray Interpretation: No Acute Changes Radiology Interpretation Completed By: Radiologist - EKG EK EKG Rhythm: Sinus Rhythm - [address] Segment: Normal Ectopy: None Course/Dx - Course Assessment/Plan: DISCUSSED RESULTS WITH PATIENT. DISCHARGE HOME STABLE. - Diagnoses Provider Diagnoses: Left shoulder pain Discharge - Discharge Plan Condition: Stable Disposition: HOME Patient Education Materials: Shoulder Pain (ED) Forms: *Work Release Referrals: Collin Nicole MD [Primary Care Provider] - Additional Instructions: FOLLOW UP WITH YOUR DOCTOR. RETURN TO THE EMERGENCY DEPARTMENT FOR ANY WORSENING OF YOUR CONDITION OR QUESTIONS OR CONCERNS. The documentation as recorded by the Elicia paz Michael accurately reflects the service I personally performed and the decisions made by me, Sam Dangelo MD.
[2016-05-21 18:18] VITALS: BP 151/71
== END 2016-05-21 18:20 | disposition home or self-care (01) ==
LOC: ED 14:29
DX: M25.512 Pain in left shoulder (principal); R60.0 Localized edema; M79.602 Pain in left arm
CPT/HCPCS: 36415; 71010; 80053; 81003; 82550; 82553; 83605; 83690; 83735; 84443; 84484; 85025; 85379; 85610; 85730; 86140; 93005; 96374; 96375; 99282; J2270; J2405

== ENCOUNTER 2017-01-19 08:40 | Emergency (ER) | payer OTHER ==
[2017-01-19] MEDS ORDERED: methylPREDNISolone 125 MG* 2 ML VIAL IM ONE (08:55)
[2017-01-19] MEDS ORDERED: Ipratropium 0.5MG/2.5ML NEB* 0.5 MG/2.5 ML NEB.SOLN INH ONE (08:55)
[2017-01-19] MEDS ORDERED: Albuterol 2.5 MG/3 ML NEB.SOL* (0.083%) INH ONE (08:55)
--- NOTE | 2017-01-19 09:02 | UC ---
Shortness of Breath HPI - HPI Summary HPI Summary: PT IS A LONGTIME SMOKER WHO DEVELOPED SOB AND WHEEZE 4 DAYS AGO. SAW PCP 2 DAYS AGO AND HAD NEG CXR AND WAS RX ALBUTEROL NEBS AND SALINE NASAL SPRAYS. PT REPORTS NOT FEELING ANY BETTER. LAST NEB TX LAST NIGHT. REPORTS CHEST FEELS TIGHT AND SHE HAS CHILLS AND SWEATS. NOT SLEEPING WELL. NOT EATING DUE TO NAUSEA. O2SAT 90% ON ARRIVAL. PT DOES NOT HAVE HOME OXYGEN. - History of Current Complaint Stated Complaint: COUGH,SOB Time Seen by Provider: 01/19/17 08:44 Hx Obtained From: Patient Hx Last Menstrual Period: 6 yrs ago Onset/Duration: Gradual Onset, Lasting Days, Still Present Timing: Constant Current Severity: Moderate Dyspnea At: Rest Aggrevating Factors: Nothing Alleviating Factors: Nothing Associated Signs & Symptoms: Positive: Wheezing, Chills, Diaphoresis. Negative : Chest Pain Unrelated to Cough, Fever - Allergy/Home Medications Allergies/Adverse Reactions: Allergies Allergy/AdvReac Type Severity Reaction Status Date / Time Ibuprofen Allergy Severe Swelling Verified 01/19/17 08:57 Penicillins Allergy Severe Swelling Verified 01/19/17 08:57 Of Face,Lips,& Throat Cephalexin [From Keflex] Allergy Intermediate Rash Verified 01/19/17 08:57 Bacitracin cream Allergy Severe Blisters Uncoded 01/19/17 08:57 ENVIRONMENTAL/SEASONAL Allergy Mild RUNNY Uncoded 01/19/17 08:57 HAYFEVER NOSE, EYES SWELL, SNEEZING Home Medications: Home Medications Albuterol 2.5MG/3ML (0.083%)* [Ventolin 2.5 MG/3 ML NEB.CONNER*] 2.5 mg INH Q6H [History Confirmed 01/19/17] Fluticasone NASAL SPRAY 50MCG* [Flonase NASAL SPRAY 50MCG*] 2 spray BOTH NARES DAILY 01/19/17 [History Confirmed 01/19/17] PMH/Surg Hx/FS Hx/Imm Hx Cardiovascular History: Hypertension Respiratory History: Asthma - Surgical History Surgical History: Yes Surgery Procedure, Year, and Place: Nose and lip surgery for basal cell carcinoma. [place] [facility] [place]2,. right wrist - ORIF ( PLATES & PINS) tubal, right knee SCOPE. LIVER BIOPSY - Family History Known Family History: Positive: Cardiac Disease, Hypertension, Other - CA Negative: Diabetes - Social History Alcohol Use: None Substance Use Type: None Smoking Status (MU): Light Every Day Tobacco Smoker Type: Cigarettes Amount Used/How Often: < 1/2 ppd Length of Time of Smoking/Using Tobacco: 40 years Have You Smoked in the Last Year: Yes - Immunization History Most Recent Influenza Vaccination: JAN 2016 Most Recent Tetanus Shot: 05/08/2014 Review of Systems Constitutional: Chills ENT: Negative Respiratory: Shortness Of Breath, Other - WHEEZE Cardiovascular: Negative Gastrointestinal: Nausea All Other Systems Reviewed And Are Negative: Yes Physical Exam Triage Information Reviewed: Yes Appearance: No Pain Distress, Well-Nourished, Ill-Appearing - MILDLY Vital Signs: Initial Vital Signs Temp 96.8 F 01/19/17 08:49 Pulse 96 01/19/17 08:49 Resp 32 01/19/17 08:49 BP 155/85 01/19/17 08:49 Pulse Ox 95 01/19/17 08:49 Vital Signs Reviewed: Yes Eyes: Positive: Conjunctiva Clear ENT: Positive: Hearing grossly normal Neck: Positive: Supple Respiratory: Positive: No respiratory distress, No accessory muscle use, Decreased breath sounds, Wheezing - BILATERAL BASES Cardiovascular Exam: Normal Abdomen Description: Positive: Soft Musculoskeletal: Positive: No Edema Neurological: Positive: Alert Psychological: Positive: Age Appropriate Behavior Skin: Negative: rashes Diagnostics - Radiology CHEST XRAY Xray Interpretation: No Acute Changes - Stigmata of probable obstructive lung disease. No acute pulmonary or cardiac process evident Radiology Interpretation Completed By: Radiologist Re-Evaluation - Re-Evaluation First Eval Re-Evaluation Time: 11:00 - PT REPORTS SHE FEELS 90% BETTER AFTER TREATMENT. O2 SAT IMPROVED TO 96-100% ON RA BOTH AT REST AND WHILE AMBULATING. Change: Improved Shortness of Breath Dx - Course Course Of Treatment: PT REPORTS FEELING 90% BETTER AFTER SOLUMEDROL, DUONEB AND OXYGEN. CXR SHOWS STIGMATA OF COPD. WILL TREAT COPD EXACERBATION WITH CONTINUE STEROIDS, NEBS AND AZITHROMYCIN. INCENTIVE SPIROMETER DISPENSED. ENCOURAGED TO CONTINUE SMOKING CESSATION EFFORTS. TO ER WITHOUT FAIL IF SX WORSEN AGAIN. - Differential Dx/Diagnosis Provider Diagnoses: COPD EXACERBATION Discharge - Discharge Plan Condition: Stable Disposition: HOME Prescriptions: Azithromycin [Azithromycin 500 MG TAB] 500 mg PO DAILY #5 tab predniSONE TAB* [Deltasone TAB*] 50 mg PO DAILY #4 tab Patient Education Materials: COPD (Chronic Obstructive Pulmonary Disease) (ED) , Dyspnea (ED) Forms: *Work Release Referrals: Harper Tinoco MD [Primary Care Provider] - If Needed Additional Instructions: YOUR SYMPTOMS IMPROVED AFTER 125MG SOLUMEDROL, ALBUTEROL TREATMENT AND OXYGEN. YOUR XRAY SHOWED CHANGES SUGGESTIVE OF COPD. DO YOUR BEST TO CONTINUE WITH SMOKING CESSATION EFFORTS. AT TIME OF DISCHARGE YOUR OXYGEN LEVELS WERE 96%-100 % AT REST AND WITH AMBULATION. NEXT DOSE OF STEROID TOMORROW. START YOUR ANTIBIOTICS TODAY. USE YOUR ALBUTEROL NEBS TWICE DAILY AND NEEDED. CARRY INHALER WITH YOU WHEN OUT AND ABOUT. GO TO ER WITHOUT FAIL IF YOUR SYMPTOMS WORSEN AGAIN. CALL THE NUMBER BELOW FOR ASSISTANCE IN ESTABLISHING WITH A PCP An additional resource available to assist in finding the appropriate physician for your health care needs is the [facility] ([facility]). You may contact them by calling [phone].
--- NOTE | 2017-01-19 10:09 | RAD ---
INDICATION: Shortness of breath, chills, fever. History of COPD. COMPARISON: January 17, 2017 TECHNIQUE: Dual energy PA and routine lateral views of the chest were obtained. REPORT: Mild prominence of the interstitial markings. Mildly increased AP thoracic diameter. No focal pulmonary lesion, compelling alveolar consolidation, pleural effusion, pneumothorax. The heart, pulmonary vasculature, and mediastinal contours are unremarkable. IMPRESSION: Stigmata of probable obstructive lung disease. No acute pulmonary or cardiac process evident.
[2017-01-19 10:34] VITALS: BP 101/43
== END 2017-01-19 11:30 | disposition home or self-care (01) ==
LOC: UCEAST 08:40
DX: J44.9 Chronic obstructive pulmonary disease, unspecified (principal); I10 Essential (primary) hypertension; Z88.6 Allergy status to analgesic agent; Z88.1 Allergy status to other antibiotic agents; Z88.0 Allergy status to penicillin; F17.210 Nicotine dependence, cigarettes, uncomplicated
CPT/HCPCS: 71020; 93005; 99203; G0463; J2930; J7644

== ENCOUNTER 2018-01-21 07:02 | Day surgery (SDC) | payer OTHER ==
[~2018-01-21 07:02] MED LIST: Buffered Lidocaine 0.9% SYRIN* 5 ML/SYR SYRINGE INTRADERM ONE
[2018-01-21] MEDS ORDERED: Clindamycin 900 MG/D5W BAG(*) 900 MG/50 ML BAG IVPB ONE (07:18)
[2018-01-21] MEDS ORDERED: ROPIVACAINE 5 MG/ML 30 ML BTL (0.5%) ONE ×2 (07:48→08:24)
[2018-01-21] MEDS ORDERED: Propofol* 10 MG/ML 20 ML BTL IV PUSH ONE (07:58)
[2018-01-21] MEDS ORDERED: Rocuronium* 10 MG/ML VIAL ONE (07:58)
[2018-01-21] MEDS ORDERED: Midazolam* 1 MG/ML 2 ML VIAL (2 MG) ONE (07:58)
[2018-01-21] MEDS ORDERED: Lidocaine 2% PF * 5 ML VIAL ONE (07:58)
[2018-01-21] MEDS ORDERED: fentaNYL* 50 MCG/ML 2 ML VIAL (100 MCG VIAL) ONE (07:58)
[2018-01-21] MEDS ORDERED: Levalbuterol 0.63MG/3ML NEB* UNIT OF USE INH ONE (08:17)
[2018-01-21] MEDS ORDERED: [UNRECOGNIZED DRUG - OTHER] ONE (08:25)
[2018-01-21] MEDS ORDERED: Lidocaine 1%* 5 ML VIAL ONE ×3 (08:29→08:32)
[2018-01-21] MEDS ORDERED: Labetalol IV* 5 MG/ML 20 ML VIAL ONE (09:58)
[2018-01-21] MEDS ORDERED: Atropine 1MG/ML INJ* 1 ML VIAL ONE (10:13)
[2018-01-21] MEDS ORDERED: methylPREDNISolone ACETATE 80* 80 MG/ML 1 ML VIAL ONE (10:32)
[2018-01-21] MEDS ORDERED: Acetaminophen IV 1GM/100ML * 100 ML ONE (10:41)
[2018-01-21] MEDS ORDERED: HYDROmorphone INJ* 0.5 MG/0.5 ML SYRINGE ONE ×3 (10:42→11:46)
[2018-01-21] MEDS ORDERED: Dexamethasone IV* 4 MG/ML 1 ML (4 MG) ONE (10:50)
[2018-01-21] MEDS ORDERED: Ondansetron INJ* 2 MG/ML VIAL IV PRN (11:23)
[2018-01-21] MEDS ORDERED: Naloxone* 0.4 MG/ML 1 ML VIAL IV PRN (11:23)
[2018-01-21] MEDS: HYDROmorphone INJ1* 1 MG/ML SYRINGE IV PRN ×2 (11:34→11:47)
[2018-01-21] MEDS ORDERED: oxyCODONE ORAL.SOLN* 5 MG/5 ML UDC ONE (12:34)
[2018-01-21 13:39] VITALS: BP 120/91
--- NOTE | 2018-02-05 00:50 | OP ---
CC: PCP; Dr. Ramirez * DATE OF OPERATION: 01/21/18 - MERGED WITH [facility] DATE OF : 57 SURGEON: Kaden Santiago MD RN ENT: WEI Lovell ANESTHESIOLOGIST: Bianca Ruiz DO ANESTHESIA: General interscalene block. PRE-OP DIAGNOSIS: Right shoulder partial thickness tear of the rotator cuff with bicipital tendonitis and acromioclavicular joint arthritis. POST-OP DIAGNOSIS: Right shoulder partial thickness tear of the rotator cuff with bicipital tendonitis and acromioclavicular joint arthritis. OPERATIVE PROCEDURE: 1. Right shoulder arthroscopy with decompression and debridement. 2. Subpectoral biceps tenodesis. 3. Arthroscopic excision distal clavicle. 4. Subacromial injection of 80 mg Depo-Medrol. COMPLICATIONS: None. ESTIMATED BLOOD LOSS: Minimal. IMPLANTS USED: One 2.8 mm Q-Fix. INDICATIONS: Kirstie Granados is a 62-year-old female who has had persistent right shoulder pain refractory to conservative management. She has undergone injections in the past. She has elected to proceed with surgical treatment. Risks and benefits were discussed at length with her including but not limited to bleeding, infection, damage to nearby vessels, surrounding structures, wound nonhealing, persistent pain, need for further surgery, scarring, stiffness, incomplete relief of symptoms and risks of anesthesia. DESCRIPTION OF PROCEDURE: The patient was greeted in the preoperative area by the attending surgeon. Correct extremity was marked and consent was confirmed. The patient was brought back to the operating suite where she was placed in supine position on the operating table. She underwent interscalene nerve block by the anesthesiologist after which she was brought back to the operating suite , where she was placed in the supine position on the operating table. She then underwent general anesthesia and endotracheal intubation after which she was placed in the left lateral decubitus position with an axillary roll and all bony prominences were well padded. She was secured with a peg board. The right arm was draped unsterile with 10 pounds of traction. The right shoulder was then prepped and draped in usual sterile fashion beginning with chlorhexidine soap, scrub, and alcohol wipe, and a final prep with ChloraPrep. After appropriate surgical pause indicating site, side, procedure, and administration of antibiotics, a standard postero-lateral portal was made sharply with an 11 blade and the scope was introduced into the joint, joint was examined. There was abundant synovitis and there was erythema in the joint. The glenohumeral joint had grade 0-1 changes. There was partial thickness tearing of the undersurface of the rotator cuff. The biceps had obvious tendinitis and tendinosis. There was abundant synovitis in the joints itself. The anterior portal was made in an outside-in fashion. Shaver was used to debride the synovitis back as well as debride the anterior, posterior, superior labrum. The inferior recess was intact. At this point, the rotator cuff was marked for evaluation of the subacromial space. The scope was introduced into the subacromial space. There was abundant synovitis that was present. The lateral portal was made in an outside-in fashion. The shaver was used to debride this back. The undersurface of the acromion was then skeletonized using electrocautery device. This revealed an anterior lateral spur. This was debrided back using a 4-0 oval salud. The CA ligament was also released. This was taken back all the way to the level of the AC joint. All loose debris was removed from this portion. Attention was directed to the AC joint. The salud was brought into the anterior portal and the distal 8 mm of the clavicle was then removed using arthroscopic salud, this was confirmed under arthroscopic visualization. The clavicle was taken through gentle range of motion but no areas of impingement were found. Attention was then directed to the cuff which was then carefully probed and there was no evidence of partial thickness tearing. A decision was made to not repair the tendon. At this point, an 18-gauge needle was then placed under arthroscopic visualization and 80 mg of Depo-Medrol was then injected into the subacromial space. Final images were obtained. Attention was directed to the biceps. The bed was airplaned to the right side and the anterior aspect of the shoulder was prepped again using electrocautery device. A 15-blade was used to make an incision along the biceps tendon. Soft tissues were carefully dissected to expose the pec fascia which was then elevated and the biceps tendon was identified and brought through the wound. There was abundant synovitis and tendinitis. The bicipital groove was then prepared in the usual fashion and then a Q-Fix anchor was then placed with excellent purchase. The sutures were passed through the tendon in a Crow-Zachary type configuration. The excess stump was excised and the biceps shuttled back to the wound. Final images were obtained. The wounds were then copiously irrigated. The anterior wound was closed in layers with 2-0 Vicryl and 3-0 Monocryl. The portals were closed with 3-0 nylon. Sterile dressings, Cryo/Cuff and UltraSling were applied. She was awoken from anesthesia and transferred to the PACU in stable condition. POSTOPERATIVE PLAN: She will be nonweightbearing. She will be discharged on pain medication and antibiotics. DVT prophylaxis was considered, but deferred due to no previous personal or family history. I will see the patient back in 10 to 14 days. She will be discharged on pain medication at the guidance of the pain clinic because she is a chronic pain patient. [id number]/[facility] #: [id number] JOSE RAFAEL
== END 2018-01-21 13:33 | disposition home or self-care (01) ==
LOC: OREAST 07:02
PROVIDERS: ATTEND Orthopaedic Surgery
DX: M75.101 Unspecified rotator cuff tear or rupture of right shoulder, not specified as traumatic (principal); M75.21 Bicipital tendinitis, right shoulder; M19.011 Primary osteoarthritis, right shoulder; I10 Essential (primary) hypertension; J45.909 Unspecified asthma, uncomplicated; Z87.891 Personal history of nicotine dependence; F41.8 Other specified anxiety disorders; G89.18 Other acute postprocedural pain
CPT/HCPCS: 88304; A9270-GY; C1776; J0461; J1040; J1100; J1170; J2250; J2704; J2795; J3010